=== PATIENT | female | born 1985 | race African-American/Black ===

== ENCOUNTER 2019-06-17 07:32 | Emergency (ER) | payer MEDICAID ==
[~2019-06-17] VITALS: Ht 167.6 cm; Wt 76.0 kg
[2019-06-17 09:36] LABS: CLARITY URINE CLOUDY (CLEAR); COLOR URINE YELLOW (YELLOW); KETONES URINE NEGATIVE (NEGATIVE); LEUKOCYTE ESTERASE URINE NEGATIVE (NEGATIVE); NITRITE URINE NEGATIVE (NEGATIVE); OCCULT BLOOD URINE NEGATIVE (NEGATIVE); PROTEIN URINE NEGATIVE (NEGATIVE); SPECIFIC GRAVITY URINE 1.026 (1.005-1.030); UROBILINOGEN URINE 0.2 E.U./dL (0.2-1.0)
[2019-06-17 12:30] VITALS: BP 124/74
[2019-06-17 12:49] LABS: BASOPHILS % 0.5 % (0.0-2.0); CHLORIDE 102 mEq/L (98-107); HEMATOCRIT. 39.2 % (36.0-48.0); HEMOGLOBIN. 13.3 g/dL (12.0-16.0); LYMPHOCYTES % 27.5 % (20.0-50.0); MEAN CORPUSCULAR VOLUME 94.5 fL (81.0-99.0); MEAN PLATELET VOLUME 10.5 fl (7.4-10.4); MONOCYTES % 5.2 % (2.0-8.0); NEUTROPHILS % 64.8 % (40.0-76.0); PLATELET 228 x1000/uL (130-400); RED BLOOD CELL COUNT 4.15 mill/uL (4.2-5.4); RED CELL DISTRIBUTION WIDTH 13.2 % (11.6-14.6)
[2019-06-17 13:16] LABS: B-HCG QUANTITATIVE 53773 mIU/mL (<3)
== END 2019-06-17 13:58 | disposition home or self-care (01) ==
LOC: ER 07:32
DX: O46.92 Antepartum hemorrhage, unspecified, second trimester (principal); O24.912 Unspecified diabetes mellitus in pregnancy, second trimester; O26.892 Other specified pregnancy related conditions, second trimester; Z98.890 Other specified postprocedural states; Z88.0 Allergy status to penicillin; Z3A.22 22 weeks gestation of pregnancy
CPT/HCPCS: 36415; 76801; 81003; 81025; 84702; 86850; 86900; 99284

== ENCOUNTER 2019-08-17 11:47 | Emergency (ER) | payer MEDICAID ==
[~2019-08-17] VITALS: Ht 162.6 cm; Wt 75.0 kg
[2019-08-17 11:54] VITALS: BP 106/71
[2019-08-17] MEDS ORDERED: ACETAMINOPHEN 325MG TABLET PO PRN (14:00)
[2019-08-17 15:56] LABS: BASOPHILS % 0.9 % (0.0-2.0); EOSINOPHILS % 2.6 % (0.0-5.0); HEMATOCRIT. 35.1 % (36.0-48.0); HEMOGLOBIN. 12.1 g/dL (12.0-16.0); LYMPHOCYTES % 25.6 % (20.0-50.0); MEAN CORPUSCULAR HEMOGLOBIN 31.9 pg (28.0-32.0); MEAN CORPUSCULAR VOLUME 92.9 fL (81.0-99.0); MEAN PLATELET VOLUME 10.6 fl (7.4-10.4); MONOCYTES % 5.1 % (2.0-8.0); NEUTROPHILS % 65.8 % (40.0-76.0); PLATELET 189 x1000/uL (130-400); RED BLOOD CELL COUNT 3.78 mill/uL (4.2-5.4); RED CELL DISTRIBUTION WIDTH 12.9 % (11.6-14.6)
[2019-08-17 16:04] LABS: CHLORIDE 106 mEq/L (98-107)
[2019-08-17 16:26] LABS: B-HCG QUANTITATIVE 19240 mIU/mL (<3)
== END 2019-08-17 16:35 | disposition home or self-care (01) ==
LOC: ER 11:54
DX: O26.892 Other specified pregnancy related conditions, second trimester (principal); Z3A.17 17 weeks gestation of pregnancy; Z98.890 Other specified postprocedural states; E11.9 Type 2 diabetes mellitus without complications; Z88.0 Allergy status to penicillin
CPT/HCPCS: 36415; 76805; 80048; 84702; 85025; 99284; Z7610

== ENCOUNTER 2019-09-08 02:35 | Observation (INO) | payer MEDICAID ==
[~2019-09-08] VITALS: Ht 30.5 cm; Wt 0.5 kg
[2019-09-08] MEDS ORDERED: SODIUM CHLORIDE 0.9% 1,000 ML IV SCH (04:15)
[2019-09-08] MEDS ORDERED: DEXTROSE 50% WATER 50ML SYRINGE IV PRN (05:30)
[2019-09-08 05:44] LABS: BASOPHILS % 0.6 % (0.0-2.0); EOSINOPHILS % 2.6 % (0.0-5.0); HEMATOCRIT. 35.4 % (36.0-48.0); HEMOGLOBIN. 12.1 g/dL (12.0-16.0); LYMPHOCYTES % 30.5 % (20.0-50.0); MEAN CORPUSCULAR VOLUME 93.7 fL (81.0-99.0); MEAN PLATELET VOLUME 11.5 fl (7.4-10.4); MONOCYTES % 6.3 % (2.0-8.0); PLATELET 158 x1000/uL (130-400); RED BLOOD CELL COUNT 3.78 mill/uL (4.2-5.4); RED CELL DISTRIBUTION WIDTH 12.7 % (11.6-14.6)
[2019-09-08 05:46] LABS: CHLORIDE 107 mEq/L (98-107)
[2019-09-08 06:05] LABS: CLARITY URINE CLEAR (CLEAR); COLOR URINE YELLOW (YELLOW); KETONES URINE 1+ (NEGATIVE); LEUKOCYTE ESTERASE URINE NEGATIVE (NEGATIVE); NITRITE URINE NEGATIVE (NEGATIVE); OCCULT BLOOD URINE NEGATIVE (NEGATIVE); PROTEIN URINE NEGATIVE (NEGATIVE); SPECIFIC GRAVITY URINE 1.035 (1.005-1.030); UROBILINOGEN URINE 0.2 E.U./dL (0.2-1.0)
[2019-09-08 06:48] LABS: *AMPHETAMINES SCREEN URINE NEGATIVE (NEGATIVE); *BARBITURATES SCREEN URINE NEGATIVE (NEGATIVE); *BENZODIAZEPINES SCREEN URINE NEGATIVE (NEGATIVE); *COCAINE SCREEN URINE NEGATIVE (NEGATIVE)
[2019-09-08 06:49] LABS: CANNABINOID URINE SCREEN NEGATIVE (NEGATIVE); METHADONE URINE SCREEN NEGATIVE (NEGATIVE); OPIATES URINE SCREEN NEGATIVE (NEGATIVE); PHENCYCLIDINE URINE SCREEN NEGATIVE (NEGATIVE)
[2019-09-08] MEDS ORDERED: CITRIC ACID/SODIUM CITRATE SOLN 30ML UDC PO NR (08:00)
[2019-09-08] MEDS ORDERED: DOCUSATE SODIUM 100MG CAPSULE PO SCH (09:00)
[2019-09-08] MEDS ORDERED: BLOOD SUGAR DIAGNOSTIC STRIP TEST SCH (09:00)
[2019-09-08] MEDS ORDERED: INSULIN LISPRO 100 UNITS/ML SUBCUT SCH (09:00)
[2019-09-08] MEDS ORDERED: INSU100I28 SQ (11:59)
== END 2019-09-08 12:20 | disposition home or self-care (01) ==
LOC: 8 EST LDRP 02:35
PROVIDERS: ADMIT Specialist; ATTEND Specialist
DX: O26.892 Other specified pregnancy related conditions, second trimester (principal); R10.30 Lower abdominal pain, unspecified; Z3A.20 20 weeks gestation of pregnancy
CPT/HCPCS: 36415; 76805; 80053; 80305; 81003; 82962; 85025; 99281; G0378; J1815; 96360; 96361; J7030

== ENCOUNTER 2019-10-02 11:27 | Observation (INO) | payer MEDICAID ==
[~2019-10-02] VITALS: Ht 165.1 cm; Wt 68.0 kg
[~2019-10-02 11:27] MED LIST: INSU100I28 SQ
[2019-10-02] MEDS ORDERED: LACTATED RINGERS 1,000 ML IV SCH (12:15)
[2019-10-02] MEDS ORDERED: INSULIN REGULAR (HUMULIN R) 300UNITS/3ML SUBCUT ONE (13:00)
[2019-10-02] MEDS ORDERED: CITRIC ACID/SODIUM CITRATE SOLN 30ML UDC PO ONE (13:15)
[2019-10-02 13:38] LABS: CLARITY URINE CLEAR (CLEAR); COLOR URINE YELLOW (YELLOW); KETONES URINE 1+ (NEGATIVE); LEUKOCYTE ESTERASE URINE NEGATIVE (NEGATIVE); NITRITE URINE NEGATIVE (NEGATIVE); OCCULT BLOOD URINE NEGATIVE (NEGATIVE); PROTEIN URINE NEGATIVE (NEGATIVE); UROBILINOGEN URINE 0.2 E.U./dL (0.2-1.0)
[2019-10-02 15:06] LABS: CHLORIDE 106 mEq/L (98-107)
[2019-10-02 15:07] LABS: HEMATOCRIT 35.6 % (36.0-48.0); HEMOGLOBIN 12.1 g/dL (12.0-16.0); MEAN CORPUSCULAR HEMOGLOBIN 31.8 pg (28.0-32.0); MEAN CORPUSCULAR VOLUME 93.2 fL (81.0-99.0); PLATELET 202 x1000/uL (130-400); RED BLOOD CELL COUNT 3.81 mill/uL (4.2-5.4); RED CELL DISTRIBUTION WIDTH 13.2 % (11.6-14.6)
[2019-10-02] MEDS ORDERED: INSULIN REGULAR (HUMULIN R) 300UNITS/3ML SUBCUT NR (15:45)
== END 2019-10-02 17:50 | disposition home or self-care (01) ==
LOC: 8 EST LDRP 11:27
PROVIDERS: ADMIT Obstetrics & Gynecology; ATTEND Obstetrics & Gynecology
DX: O24.312 Unspecified pre-existing diabetes mellitus in pregnancy, second trimester (principal)
CPT/HCPCS: 36415; 80053; 81003; 82962; 85027; 96360; 96372; 99281; G0378; J1815; 96361

== ENCOUNTER 2019-10-04 21:25 | Observation (INO) | payer MEDICAID ==
[~2019-10-04] VITALS: Ht 165.1 cm; Wt 63.5 kg
[2019-10-04] MEDS ORDERED: BLOOD SUGAR DIAGNOSTIC STRIP TEST SCH (22:15)
[2019-10-04] MEDS ORDERED: INSULIN REGULAR (HUMULIN R) 300UNITS/3ML SUBCUT NR (23:00)
== END 2019-10-04 23:45 | disposition left against medical advice (07) ==
LOC: 8 EST LDRP 21:25
PROVIDERS: ADMIT Obstetrics & Gynecology; ATTEND Obstetrics & Gynecology
DX: O62.9 Abnormality of forces of labor, unspecified (principal); O26.892 Other specified pregnancy related conditions, second trimester; N89.8 Other specified noninflammatory disorders of vagina; R10.9 Unspecified abdominal pain; Z3A.24 24 weeks gestation of pregnancy
CPT/HCPCS: 36415; 82947; 82962; 99281; G0378; J1815

== ENCOUNTER 2019-10-14 13:01 | Observation (INO) | payer MEDICAID ==
[~2019-10-14] VITALS: Ht 165.1 cm; Wt 76.2 kg
[2019-10-14] MEDS ORDERED: LACTATED RINGERS 1,000 ML IV SCH (14:15)
[2019-10-14 14:23] LABS: CLARITY URINE CLEAR (CLEAR); COLOR URINE YELLOW (YELLOW); KETONES URINE 3+ (NEGATIVE); LEUKOCYTE ESTERASE URINE NEGATIVE (NEGATIVE); NITRITE URINE NEGATIVE (NEGATIVE); OCCULT BLOOD URINE NEGATIVE (NEGATIVE); PROTEIN URINE NEGATIVE (NEGATIVE); UROBILINOGEN URINE 0.2 E.U./dL (0.2-1.0)
[2019-10-14] MEDS ORDERED: BETAMETHASONE ACET/BETAMET 30 MG/5 ML VIAL IM SCH (17:15)
[2019-10-15] MEDS ORDERED: PREN-118 PO (18:35)
== END 2019-10-14 17:45 | disposition home or self-care (01) ==
LOC: 8 EST LDRP 13:01
PROVIDERS: ADMIT Obstetrics & Gynecology; ATTEND Obstetrics & Gynecology
DX: O26.892 Other specified pregnancy related conditions, second trimester (principal); R10.2 Pelvic and perineal pain; M54.5 Low back pain; Z3A.25 25 weeks gestation of pregnancy
CPT/HCPCS: 76805; 81003; 82731; 96372; 99281; G0378; J0702; 96360; 96361

== ENCOUNTER 2019-10-15 18:14 | Observation (INO) | payer MEDICAID ==
[~2019-10-15] VITALS: Ht 165.1 cm; Wt 76.2 kg
[2019-10-15] MEDS ORDERED: BETAMETHASONE ACET/BETAMET 30 MG/5 ML VIAL IM NR (18:24)
[2019-10-15] MEDS ORDERED: PREN-118 PO (18:35)
== END 2019-10-15 18:40 | disposition home or self-care (01) ==
LOC: 8 EST LDRP 18:14
PROVIDERS: ADMIT Obstetrics & Gynecology; ATTEND Obstetrics & Gynecology
DX: Z34.82 Encounter for supervision of other normal pregnancy, second trimester (principal); Z3A.25 25 weeks gestation of pregnancy
CPT/HCPCS: 96372; G0378; J0702

== ENCOUNTER 2019-11-07 18:11 | Observation (INO) | payer MEDICAID ==
[~2019-11-07 18:11] MED LIST changes: +PREN-118 PO
== END 2019-11-07 18:45 | disposition home or self-care (01) ==
LOC: 8 EST LDRP 18:11
PROVIDERS: ADMIT Specialist; ATTEND Specialist
DX: Z04.1 Encounter for examination and observation following transport accident (principal); Z3A.29 29 weeks gestation of pregnancy; V89.2XXA Person injured in unspecified motor-vehicle accident, traffic, initial encounter; Y93.89 Activity, other specified; Y92.89 Other specified places as the place of occurrence of the external cause; Y99.8 Other external cause status
CPT/HCPCS: G0378

== ENCOUNTER 2019-11-20 14:10 | Observation (INO) | payer MEDICAID ==
[~2019-11-20] VITALS: Ht 165.1 cm; Wt 75.7 kg
[2019-11-20] MEDS ORDERED: ACETAMINOPHEN 500MG TABLET PO NR (14:45)
[2019-11-20] MEDS ORDERED: CITRIC ACID/SODIUM CITRATE SOLN 30ML UDC PO NR (14:58)
[2019-11-20] MEDS ORDERED: LACTATED RINGERS 1,000 ML IV SCH (15:01)
[2019-11-20 15:10] LABS: CLARITY URINE CLEAR (CLEAR); COLOR URINE YELLOW (YELLOW); KETONES URINE 2+ (NEGATIVE); LEUKOCYTE ESTERASE URINE NEGATIVE (NEGATIVE); NITRITE URINE POSITIVE (NEGATIVE); OCCULT BLOOD URINE NEGATIVE (NEGATIVE); PH URINE 5.5 (4.5-8.0); PROTEIN URINE 2+ (NEGATIVE); SPECIFIC GRAVITY URINE 1.032 (1.005-1.030)
[2019-11-20] MEDS ORDERED: NPH,100V SQ (15:52)
[2019-11-20] MEDS ORDERED: INSLIS SUBCUT (15:52)
[2019-11-20] MEDS ORDERED: CLINDAMYCIN 600MG PREMIX 50 ML IV NR (16:30)
== END 2019-11-20 17:15 | disposition home or self-care (01) ==
LOC: OB TRIAGE 14:10
PROVIDERS: ADMIT Obstetrics & Gynecology; ATTEND Obstetrics & Gynecology
DX: O26.893 Other specified pregnancy related conditions, third trimester (principal); R10.9 Unspecified abdominal pain; Z3A.31 31 weeks gestation of pregnancy
CPT/HCPCS: 81003; 82962; 96374; 99281; G0378; J3490; 96360; 96365

== ENCOUNTER 2019-11-28 14:52 | Observation (INO) | payer MEDICAID ==
[~2019-11-28] VITALS: Ht 165.1 cm; Wt 76.2 kg
[~2019-11-28 14:52] MED LIST changes: +INSLIS SUBCUT; +NPH,100V SQ
[2019-11-28] MEDS ORDERED: LACTATED RINGERS 1,000 ML IV SCH (15:37)
[2019-11-28] MEDS ORDERED: TERBUTALINE SULFATE 1MG/ML VIAL SUBCUT PRN (15:45)
[2019-11-28 17:31] LABS: CLARITY URINE CLEAR (CLEAR); COLOR URINE YELLOW (YELLOW); KETONES URINE 2+ (NEGATIVE); LEUKOCYTE ESTERASE URINE NEGATIVE (NEGATIVE); NITRITE URINE NEGATIVE (NEGATIVE); OCCULT BLOOD URINE NEGATIVE (NEGATIVE); PROTEIN URINE NEGATIVE (NEGATIVE); SPECIFIC GRAVITY URINE 1.033 (1.005-1.030); UROBILINOGEN URINE 0.2 E.U./dL (0.2-1.0)
[2019-11-28] MEDS ORDERED: NIFEDIPINE 10MG CAPSULE PO NR (18:15)
[2019-11-28] MEDS ORDERED: BLOOD SUGAR DIAGNOSTIC STRIP TEST SCH (18:30)
[2019-11-28] MEDS ORDERED: INSULIN LISPRO 100 UNITS/ML SUBCUT SCH (18:30)
[2019-11-28] MEDS ORDERED: DEXTROSE 50% WATER 50ML SYRINGE IV PRN (18:30)
== END 2019-11-28 20:25 | disposition home or self-care (01) ==
LOC: 8 EST LDRP 14:52
PROVIDERS: ADMIT Obstetrics & Gynecology; ATTEND Obstetrics & Gynecology
DX: O26.893 Other specified pregnancy related conditions, third trimester (principal); R10.30 Lower abdominal pain, unspecified; M54.5 Low back pain; Z3A.32 32 weeks gestation of pregnancy
CPT/HCPCS: 76805; 76818; 81003; 82962; 99281; G0378; J1815; J3105; 96360; 96361

== ENCOUNTER 2019-12-12 20:20 | Observation (INO) | payer MEDICAID ==
[~2019-12-12] VITALS: Ht 165.1 cm; Wt 77.1 kg
[2019-12-12] MEDS ORDERED: TERBUTALINE SULFATE 1MG/ML VIAL SUBCUT PRN (21:15)
[2019-12-12] MEDS ORDERED: SODIUM CHLORIDE 0.45% 1,000 ML IV NR ×2 (21:15→22:15)
[2019-12-12 22:36] LABS: BASOPHILS % 0.5 % (0.0-2.0); EOSINOPHILS % 2.6 % (0.0-5.0); HEMATOCRIT. 33.7 % (36.0-48.0); HEMOGLOBIN. 11.4 g/dL (12.0-16.0); MEAN CORPUSCULAR HEMOGLOBIN 30.6 pg (28.0-32.0); MEAN CORPUSCULAR VOLUME 90.7 fL (81.0-99.0); MEAN PLATELET VOLUME 11.5 fl (7.4-10.4); MONOCYTES % 7.9 % (2.0-8.0); PLATELET 168 x1000/uL (130-400); RED BLOOD CELL COUNT 3.71 mill/uL (4.2-5.4); RED CELL DISTRIBUTION WIDTH 13.3 % (11.6-14.6)
[2019-12-12 22:37] LABS: CLARITY URINE CLEAR (CLEAR); COLOR URINE DARK YELLOW (YELLOW); KETONES URINE 1+ (NEGATIVE); LEUKOCYTE ESTERASE URINE TRACE (NEGATIVE); NITRITE URINE NEGATIVE (NEGATIVE); OCCULT BLOOD URINE NEGATIVE (NEGATIVE); PH URINE 5.5 (4.5-8.0); PROTEIN URINE 1+ (NEGATIVE); SPECIFIC GRAVITY URINE 1.029 (1.005-1.030)
[2019-12-12 22:41] LABS: CHLORIDE 111 mEq/L (98-107)
[2019-12-12 22:47] LABS: D-DIMER 1.48 mg/L FEU (<0.50); INR 0.9; PROTHROMBIN TIME 9.8 sec (9.6-11.0)
[2019-12-13] MEDS ORDERED: BETAMETHASONE ACET/BETAMET 30 MG/5 ML VIAL IM NR ×2 (01:00→13:00)
== END 2019-12-13 01:30 | disposition home or self-care (01) ==
LOC: 8 EST LDRP 20:20
PROVIDERS: ADMIT Specialist; ATTEND Specialist
DX: O99.89 Other specified diseases and conditions complicating pregnancy, childbirth and the puerperium (principal); M54.5 Low back pain; O26.893 Other specified pregnancy related conditions, third trimester; R10.11 Right upper quadrant pain; R10.30 Lower abdominal pain, unspecified; O24.913 Unspecified diabetes mellitus in pregnancy, third trimester; Z3A.34 34 weeks gestation of pregnancy; Z79.4 Long term (current) use of insulin
CPT/HCPCS: 36415; 80053; 81003; 82731; 82962; 84550; 85025; 85379; 85384; 85610; 85730; 99281; G0378; 96360; 96361; J0702

== ENCOUNTER 2019-12-24 21:41 | Observation (INO) | payer MEDICAID ==
[~2019-12-24] VITALS: Ht 165.1 cm; Wt 77.1 kg
[~2019-12-24 21:41] MED LIST changes: -INSU100I28 SQ
[2019-12-24] MEDS ORDERED: LACTATED RINGERS 1,000 ML IV ONE (23:00)
[2019-12-24] MEDS ORDERED: TERBUTALINE SULFATE 1MG/ML VIAL SUBCUT PRN (23:00)
[2019-12-24] MEDS ORDERED: INSLIS SUBCUT ×2 (23:12)
[2019-12-24] MEDS ORDERED: NPH,100V SQ (23:12)
== END 2019-12-25 00:05 | disposition home or self-care (01) ==
LOC: 8 EST LDRP 21:41
PROVIDERS: ADMIT Obstetrics & Gynecology; ATTEND Obstetrics & Gynecology
DX: O62.9 Abnormality of forces of labor, unspecified (principal); O24.913 Unspecified diabetes mellitus in pregnancy, third trimester; Z79.4 Long term (current) use of insulin; Z3A.35 35 weeks gestation of pregnancy
CPT/HCPCS: 99281; G0378

== ENCOUNTER 2020-07-24 12:41 | Emergency (ER) | payer MEDICAID ==
[~2020-07-24] VITALS: Ht 165.1 cm; Wt 68.0 kg
[2020-07-24 12:44] VITALS: BP 124/74
[2020-07-24] MEDS ORDERED: ACETAMINOPHEN 325MG TABLET PO STA (13:05)
== END 2020-07-24 14:37 | disposition home or self-care (01) ==
LOC: ER 12:41
DX: S67.22XA Crushing injury of left hand, initial encounter (principal); S67.191A Crushing injury of left index finger, initial encounter; S61.201A Unspecified open wound of left index finger without damage to nail, initial encounter; E11.9 Type 2 diabetes mellitus without complications; W22.09XA Striking against other stationary object, initial encounter; Y93.9 Activity, unspecified; Y92.9 Unspecified place or not applicable; Z79.4 Long term (current) use of insulin; Z88.0 Allergy status to penicillin
CPT/HCPCS: 29130; 73130; 99283

== ENCOUNTER 2020-11-18 15:03 | Emergency (ER) | payer MEDICAID ==
[~2020-11-18] VITALS: Ht 165.1 cm; Wt 80.0 kg
[2020-11-18] MEDS ORDERED: ONDANSETRON HCL 4MG/2ML INJ IV STA (16:25)
[2020-11-18] MEDS ORDERED: MORPHINE SULFATE 4 MG/ML CPJ (NOT FOR IM USE) IV STA (16:25)
[2020-11-18 16:33] LABS: BASOPHILS % 0.5 % (0.0-2.0); EOSINOPHILS % 0.3 % (0.0-5.0); HEMATOCRIT. 35.4 % (36.0-48.0); HEMOGLOBIN. 11.8 g/dL (12.0-16.0); LYMPHOCYTES % 16.6 % (20.0-50.0); MEAN CORPUSCULAR HEMOGLOBIN 31.4 pg (28.0-32.0); MEAN PLATELET VOLUME 11.5 fl (7.4-10.4); MONOCYTES % 5.2 % (2.0-8.0); NEUTROPHILS % 77.4 % (40.0-76.0); PLATELET 207 x1000/uL (130-400); RED BLOOD CELL COUNT 3.77 mill/uL (4.2-5.4); RED CELL DISTRIBUTION WIDTH 13.5 % (11.6-14.6)
[2020-11-18 16:51] LABS: HCG SCREEN NEGATIVE
[2020-11-18 16:53] LABS: CLARITY URINE CLEAR (CLEAR); COLOR URINE YELLOW (YELLOW); KETONES URINE NEGATIVE (NEGATIVE); LEUKOCYTE ESTERASE URINE NEGATIVE (NEGATIVE); NITRITE URINE NEGATIVE (NEGATIVE); OCCULT BLOOD URINE NEGATIVE (NEGATIVE); PH URINE 6.5 (4.5-8.0); PROTEIN URINE NEGATIVE (NEGATIVE); SPECIFIC GRAVITY URINE 1.031 (1.005-1.030)
[2020-11-18] MEDS ORDERED: SODIUM CHLORIDE 0.9% 1,000 ML IV ONE (17:00)
[2020-11-18 17:12] LABS: PROTHROMBIN TIME 10.6 sec (9.6-11.0)
[2020-11-18 17:43] LABS: CHLORIDE 105 mEq/L (98-107)
[2020-11-18] MEDS ORDERED: MORPHINE SULFATE 4 MG/ML CPJ (NOT FOR IM USE) IV NR (18:45)
[2020-11-18] MEDS ORDERED: KETOROLAC 30MG/ML VIAL IV NR (18:45)
[2020-11-18] MEDS ORDERED: HYDR-4346 MT (19:03)
[2020-11-18] MEDS ORDERED: NAPR-1176 MT (19:04)
[2020-11-18] MEDS ORDERED: AZIT500T8 MT (19:04)
[2020-11-18 20:15] VITALS: BP 107/66
== END 2020-11-18 20:33 | disposition home or self-care (01) ==
LOC: ER 15:03
DX: R10.9 Unspecified abdominal pain (principal); K52.9 Noninfective gastroenteritis and colitis, unspecified; E11.9 Type 2 diabetes mellitus without complications; Z79.4 Long term (current) use of insulin; Z88.0 Allergy status to penicillin; Z91.018 Allergy to other foods
CPT/HCPCS: 36415; 74176; 80053; 81003; 83690; 84703; 85025; 85610; 96361; 96374; 96375; 96376; 99284; J1885; J2270; J2405; Z7610

== ENCOUNTER 2020-12-04 16:07 | Emergency (ER) | payer MEDICAID ==
[~2020-12-04] VITALS: Ht 167.6 cm; Wt 75.0 kg
[~2020-12-04 16:07] MED LIST changes: +AZIT500T8 MT; +NAPR-1176 MT
[2020-12-04 16:24] VITALS: BP 117/81
== END 2020-12-04 18:32 | disposition left against medical advice (07) ==
LOC: ER 16:07
DX: Z53.21 Procedure and treatment not carried out due to patient leaving prior to being seen by health care provider (principal); Z88.0 Allergy status to penicillin; Z98.890 Other specified postprocedural states
CPT/HCPCS: 93005

== ENCOUNTER 2021-04-04 22:26 | Emergency (ER) | payer MEDICAID ==
[~2021-04-04] VITALS: Ht 165.1 cm; Wt 80.0 kg
[2021-04-04 23:51] LABS: BASOPHILS % 0.9 % (0.0-2.0); EOSINOPHILS % 3.2 % (0.0-5.0); HEMATOCRIT. 38.3 % (36.0-48.0); HEMOGLOBIN. 12.9 g/dL (12.0-16.0); MEAN CORPUSCULAR HEMOGLOBIN 30.8 pg (28.0-32.0); MEAN CORPUSCULAR VOLUME 91.2 fL (81.0-99.0); MEAN PLATELET VOLUME 9.9 fl (7.4-10.4); MONOCYTES % 6.3 % (2.0-8.0); NEUTROPHILS % 38.6 % (40.0-76.0); PLATELET 277 x1000/uL (130-400); RED CELL DISTRIBUTION WIDTH 12.7 % (11.6-14.6)
[2021-04-04 23:54] LABS: CLARITY URINE CLEAR (CLEAR); COLOR URINE YELLOW (YELLOW); KETONES URINE TRACE (NEGATIVE); LEUKOCYTE ESTERASE URINE 1+ (NEGATIVE); NITRITE URINE NEGATIVE (NEGATIVE); OCCULT BLOOD URINE NEGATIVE (NEGATIVE); PROTEIN URINE TRACE (NEGATIVE); SPECIFIC GRAVITY URINE 1.033 (1.005-1.030)
[2021-04-04 23:57] LABS: CHLORIDE 113 mEq/L (98-107)
[2021-04-05 00:02] LABS: HCG SCREEN NEGATIVE
[2021-04-05] MEDS ORDERED: NITR100C MT (01:01)
[2021-04-05 01:17] VITALS: BP 127/84
== END 2021-04-05 01:18 | disposition home or self-care (01) ==
LOC: ER 22:26
DX: M79.89 Other specified soft tissue disorders (principal); R11.0 Nausea; E11.9 Type 2 diabetes mellitus without complications; Z98.890 Other specified postprocedural states; Z79.4 Long term (current) use of insulin; Z79.899 Other long term (current) drug therapy; Z88.0 Allergy status to penicillin
CPT/HCPCS: 36415; 80053; 81003; 81025; 82962; 84703; 85025; 93970; 99284

== ENCOUNTER 2021-05-05 10:08 | Emergency (ER) | payer MEDICAID ==
[~2021-05-05] VITALS: Ht 165.1 cm; Wt 79.0 kg
[~2021-05-05 10:08] MED LIST changes: +NITR100C MT
[2021-05-05] MEDS ORDERED: CYCLOBENZAPRINE 10MG TABLET PO ONE (11:00)
[2021-05-05] MEDS ORDERED: ACETAMINOPHEN 325MG TABLET PO ONE (11:00)
[2021-05-05 11:29] LABS: CLARITY URINE CLEAR (CLEAR); COLOR URINE YELLOW (YELLOW); KETONES URINE TRACE (NEGATIVE); LEUKOCYTE ESTERASE URINE 1+ (NEGATIVE); NITRITE URINE NEGATIVE (NEGATIVE); OCCULT BLOOD URINE NEGATIVE (NEGATIVE); PH URINE 5.5 (4.5-8.0); PROTEIN URINE TRACE (NEGATIVE); SPECIFIC GRAVITY URINE 1.033 (1.005-1.030); UROBILINOGEN URINE 0.2 E.U./dL (0.2-1.0)
[2021-05-05 11:54] LABS: BASOPHILS % 0.8 % (0.0-2.0); EOSINOPHILS % 0.8 % (0.0-5.0); HEMATOCRIT. 35.1 % (36.0-48.0); HEMOGLOBIN. 12.1 g/dL (12.0-16.0); LYMPHOCYTES % 16.9 % (20.0-50.0); MEAN CORPUSCULAR HEMOGLOBIN 30.9 pg (28.0-32.0); MEAN CORPUSCULAR VOLUME 89.6 fL (81.0-99.0); MONOCYTES % 6.9 % (2.0-8.0); NEUTROPHILS % 74.6 % (40.0-76.0); PLATELET 256 x1000/uL (130-400); RED BLOOD CELL COUNT 3.92 mill/uL (4.2-5.4); RED CELL DISTRIBUTION WIDTH 12.9 % (11.6-14.6)
[2021-05-05 11:56] LABS: CHLORIDE 107 mEq/L (98-107)
[2021-05-05] MEDS ORDERED: KETOROLAC 15MG/ML VIAL IV ONE (12:15)
[2021-05-05] MEDS ORDERED: CIPR-263 MT (12:40)
[2021-05-05 15:47] VITALS: BP 94/54
== END 2021-05-05 15:50 | disposition home or self-care (01) ==
LOC: ER 10:08
DX: M54.5 Low back pain (principal); R00.0 Tachycardia, unspecified; E11.9 Type 2 diabetes mellitus without complications; Z79.4 Long term (current) use of insulin; Z88.0 Allergy status to penicillin; Z91.018 Allergy to other foods; Z98.890 Other specified postprocedural states
CPT/HCPCS: 36415; 72100; 80053; 81003; 81025; 85025; 87077; 87086; 87186; 96374; 99285; J1885

== ENCOUNTER 2021-08-28 13:01 | Emergency (ER) | payer MEDICAID ==
[~2021-08-28] VITALS: Ht 162.6 cm; Wt 80.0 kg
[~2021-08-28 13:01] MED LIST changes: +CIPR-263 MT
[2021-08-28] MEDS ORDERED: IBUPROFEN 600MG TABLET PO STA (16:10)
[2021-08-28] MEDS ORDERED: NAPR-681 PO (16:29)
[2021-08-28 17:12] VITALS: BP 135/78
== END 2021-08-28 17:12 | disposition home or self-care (01) ==
LOC: ER 13:01
DX: S90.122A Contusion of left lesser toe(s) without damage to nail, initial encounter (principal); X58.XXXA Exposure to other specified factors, initial encounter; Y93.89 Activity, other specified; Y92.89 Other specified places as the place of occurrence of the external cause; Y99.8 Other external cause status; E11.9 Type 2 diabetes mellitus without complications; Z98.890 Other specified postprocedural states; Z79.899 Other long term (current) drug therapy; Z88.0 Allergy status to penicillin; Z79.4 Long term (current) use of insulin
CPT/HCPCS: 73660; 81025; 99283